=== PATIENT | male | born 1980 | race Caucasian/White ===

== ENCOUNTER 2018-12-21 16:52 | Outpatient (REF) | payer MEDICAID, SELFPAY ==
[2018-12-21 19:20] LABS: HCT 43.8 % (40.0-50.0); Mean Corp. HGB Concentration 34.2 g/dL (32.0-36.0); Mean Corpuscular Hemoglobin 31.4 pg (27.0-33.0); Mean Corpuscular Volume 91.6 fL (80-95); Mean Platelet Volume 11.1 fL (8.0-11.0); Platelet Count 208 x1000/uL (130-400); RBC 4.78 m/cumm (4.50-6.00); RBC Distribution Width 12.9 % (11.8-14.1); White Blood Cell Count 9.18 k/cumm (4.4-10.8)
[2018-12-21 19:42] LABS: ALT 45 U/L (12-78); AST 28 U/L (15-37); Albumin 4.6 g/dL (3.4-5.0); Alkaline Phosphatase 89 U/L (46-116); Anion Gap 9.7 mmol/L (3-11); BUN 9 mg/dL (7-18); Bilirubin, Total 0.6 mg/dL (0.2-1.0); CO2 30.3 mmol/L (21.0-32.0); CREATININE 1.06 mg/dL (0.70-1.30); Calcium 9.3 mg/dL (8.5-10.1); Chloride 99 mmol/L (98-107); Glucose 92 mg/dL (70-100); Sodium 139 mmol/L (136-145); TSH (W/Ref FT4) 1.61 uIU/mL (0.358-3.74)
[2018-12-24 10:08] LABS: PSA, Screening 0.6 ng/ml (0-2.5)
[2018-12-26 04:52] LABS: Testosterone, Total 532 ng/dL (240-950)
== END 2018-12-21 17:12 ==
LOC: NCHCN 16:52
PROVIDERS: PCP Family Medicine; Visit Provider Family Medicine
DX: R25.1 Tremor, unspecified (principal); E23.0 Hypopituitarism
CPT/HCPCS: 80053; 84153; 84403; 85027; 84443

== ENCOUNTER 2019-06-24 12:41 | Outpatient (REF) | payer MEDICAID, SELFPAY ==
[2019-06-24 19:22] LABS: ALT 64 U/L (16-63); AST 33 U/L (15-37); Albumin 4.4 g/dL (3.4-5.0); Alkaline Phosphatase 99 U/L (46-116); Anion Gap 9.1 mmol/L (3-11); BUN 10 mg/dL (7-18); Bilirubin, Total 0.5 mg/dL (0.2-1.0); CO2 30.9 mmol/L (21.0-32.0); CREATININE 1.03 mg/dL (0.70-1.30); Calcium 9.4 mg/dL (8.5-10.1); Chloride 98 mmol/L (98-107); Glucose 87 mg/dL (70-100); Potassium 4.4 mmol/L (3.5-5.1); Sodium 138 mmol/L (136-145)
== END 2019-06-24 13:01 ==
LOC: NCHCN 12:41
PROVIDERS: PCP Family Medicine; Visit Provider Family Medicine
DX: R74.0 Nonspecific elevation of levels of transaminase and lactic acid dehydrogenase [LDH] (principal)
CPT/HCPCS: 80053

== ENCOUNTER 2019-07-29 09:21 | Outpatient (REF) | payer MEDICAID, SELFPAY ==
[2019-07-29 14:25] LABS: ALT 68 U/L (16-63); Ferritin 110 ng/mL (26-388)
[2019-07-30 11:10] LABS: Hepatitis B Surface Ag Negative (Negative)
[2019-07-30 13:26] LABS: HBs Antibody, Quant 182.5 mIU/mL (See Note); Hepatitis B Surface Ab Positive (See Note)
[2019-07-30 15:02] LABS: HCV RNA Detection Quantitative 0 IU/mL (Undetected)
[2019-08-02 12:04] LABS: Ceruloplasmin 25.6 mg/dL
== END 2019-07-29 09:41 ==
LOC: NCHCN 09:21
PROVIDERS: PCP Family Medicine; Visit Provider Family Medicine
DX: R74.0 Nonspecific elevation of levels of transaminase and lactic acid dehydrogenase [LDH] (principal); Z87.19 Personal history of other diseases of the digestive system; R25.1 Tremor, unspecified
CPT/HCPCS: 82390; 86706; 87340; 82728; 84460; 87522

== ENCOUNTER 2019-10-01 09:47 | Outpatient (CLI) | payer MEDICAID, SELFPAY ==
--- NOTE | 2019-10-01 10:10 | DI.RAD_ITS ---
EXAM: XR KNEE RT 3V AP,LAT,JAYASHERE INDICATION: RT KNEE PAIN M25.561, KNEE PAIN AND SWELLING, HEMOPHILIA A. COMPARISON: No exams were available for comparison TECHNIQUE: 2D digital imaging was performed. FINDINGS: The joint spaces are well maintained. No fracture or joint effusion is seen. There is a question of mild anterior soft tissue swelling. No bony lesions are identified. IMPRESSION: Mild anterior soft tissue swelling.
== END 2019-10-01 10:07 ==
PROVIDERS: PCP Family Medicine; Visit Provider Family Medicine
DX: M25.561 Pain in right knee (principal); M79.89 Other specified soft tissue disorders
CPT/HCPCS: 73562

== ENCOUNTER 2022-01-04 16:32 | Outpatient (REF) | payer MEDICAID, SELFPAY ==
[2022-01-04 18:26] LABS: HCT 45.9 % (40.0-50.0); HGB 15.3 g/dL (13.5-17.5); MCH 31.4 pg (27.0-33.0); MCHC 33.3 % (32.0-36.0); MCV 94 fL (80-95); MPV 11.1 fL (8.0-11.0); Platelet Count 271 10^3/uL (130-400); RBC 4.88 10^6/uL (4.36-5.78); RDW 12.7 % (11.8-14.1); RDW-SD 43.9 fL; WBC 11.32 10^3/uL (4.4-10.8)
== END 2022-01-04 16:33 | disposition home or self-care (01) ==
LOC: NCHCN 16:32
PROVIDERS: PCP Family Medicine; Visit Provider Family Medicine
DX: K92.2 Gastrointestinal hemorrhage, unspecified (principal)
CPT/HCPCS: 85027

== ENCOUNTER 2023-02-15 12:40 | Outpatient (REF) | payer MEDICAID, SELFPAY ==
[2023-02-15 18:01] LABS: HCT 42.4 % (40.0-50.0); HGB 14.7 g/dL (13.5-17.5); MCH 32.5 pg (27.0-33.0); MCHC 34.7 % (32.0-36.0); MCV 94 fL (80-95); MPV 12.2 fL (8.0-11.0); Platelet Count 210 10^3/uL (130-400); RBC 4.52 10^6/uL (4.36-5.78); RDW 12.3 % (11.8-14.1); RDW-SD 42.5 fL; WBC 6.94 10^3/uL (4.4-10.8)
[2023-02-15 18:14] LABS: ALT 40 U/L (16-63); AST 20 U/L (15-37); Albumin 4.3 g/dL (3.4-5.0); Alkaline Phosphatase 91 U/L (46-116); Anion Gap 6.3 mmol/L (3-11); BUN 18 mg/dL (7-18); Bilirubin, Total 0.4 mg/dL (0.2-1.0); CO2 30.7 mmol/L (21.0-32.0); CREATININE 0.9 mg/dL (0.70-1.30); Calcium 9.2 mg/dL (8.5-10.1); Calculated LDL 92 mg/dL (<100); Chloride 103 mmol/L (98-107); Cholesterol 168 mg/dL (<200); Estimated GFR 109.36 (mL/min/1.73m2); Glucose 112 mg/dL (74-106); HDL Cholesterol 68 mg/dL (40-60); Potassium 4.8 mmol/L (3.5-5.1); Sodium 140 mmol/L (136-145); Total Protein 7.6 g/dL (6.4-8.2); Triglyceride 40 mg/dL (<150)
[2023-02-17 10:10] LABS: Hepatitis B Surface Ag Negative (Negative)
[2023-02-17 10:58] LABS: HIV-1/2 Ag & Ab Screen Negative (Negative)
[2023-02-17 11:49] LABS: HCV RNA Qualitative Undetected (Undetected)
[2023-02-17 12:09] LABS: Syphilis Serology (RPR) Negative (Negative)
[2023-02-22 16:02] LABS: Testosterone, Free 9.33 ng/dL (4.46-17.1); Testosterone, Total 354 ng/dL (240-950)
== END 2023-02-15 12:41 | disposition home or self-care (01) ==
LOC: NCHCN 12:40
PROVIDERS: PCP Family Medicine; Visit Provider Family Medicine
DX: E23.0 Hypopituitarism; I10 Essential (primary) hypertension
CPT/HCPCS: 80053; 80061; 84402; 84403; 85027; 87340; 87389; 87522; 86592

== ENCOUNTER 2023-02-21 01:50 | Outpatient (CLI) | payer MEDICAID, SELFPAY ==
--- NOTE | 2023-02-21 08:17 | DI.RAD_ITS ---
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 TECHNIQUE: 2D digital imaging was performed of the lumbar spine. Six images were obtained. AP, lat eral, right oblique, left oblique and L5-S1 spot views were obtained. COMPARISON: No exams were available for comparison FINDINGS: BONES: No fracture or destructive lesion. Vertebral bodies are unremarkable. No facet hypertrophy molly ntified. Mild degenerative changes are seen in the lower thoracic spine. DISKS: Intervertebral disc spaces are maintained. ALIGNMENT: Lumbar spinal alignment is within normal limits. No spondylolysis or spondylolisthesis. SOFT TISSUE: Normal. Large amount of stool throughout the colon suggesting constipation. IMPRESSION: 1. Unremarkable radiographs of the lumbar spine. 2. Mild degenerative changes seen in the lower thoracic spine. 3. Findings suggesting constipation. DATA REPOSITORY: RADIATION DOSE DELIVERED:
== END 2023-02-21 02:10 ==
PROVIDERS: PCP Family Medicine; Visit Provider Family Medicine
DX: L92.3 Foreign body granuloma of the skin and subcutaneous tissue (principal); M51.34 Other intervertebral disc degeneration, thoracic region; K59.00 Constipation, unspecified
CPT/HCPCS: 72110

== ENCOUNTER 2023-12-16 00:45 | Emergency (ER) | payer MEDICAID, SELFPAY ==
[2023-12-16 01:01] VITALS: BP 134/94; PULSE 88; RESP 18; TEMP 36.5; O2SAT 98
--- NOTE | 2023-12-16 01:15 | DI.CT_ITS ---
Exam(s) CT HEAD WO EXAM: CT HEAD WO CLINICAL HISTORY: Hemophilia A, psychiatric sympts, r/o bleed. TECHNIQUE: Imaging Protocol: Axial computed tomography images with coronal and sagittal reformatted images were created and reviewed COMPARISON: CR EYE FOREIGN BODY from 05/12/2017 FINDINGS: Ventricles and Extra axial spaces: Normal in size and morphology for the patient's age. Hemorrhage: None. Cerebral parenchyma: No acute territorial infarct. No mass effect is identified. Midline shift: None. Brainstem/Cerebellum: Normal. Calvarium: Normal. Visualized Paranasal sinuses/Mastoids: Clear. Soft Tissues: Unremarkable. IMPRESSION: No acute intracranial process. RADIATION DOSE DELIVERED: Total DLP DATA REPOSITORY: All CT scans at this facility are submitted to the National Radiology Data Registry (NRDR) Dose Index Registry (DIR) with the [employer] (ACR). RADIATION OPTIMIZATION: All CT scans at this facility use at least one of these dose optimization te chniques: automated exposure control; mA and/or kV adjustment per patient size (includes targeted exa ms where dose is matched to clinical indication); or iterative reconstruction.
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
[2023-12-16 01:26] LABS: Abs Immature Grans 0.02 10^3/uL (0.0-0.06); Absolute Basophil Count 0.06 10^3/uL (0.0-0.2); Absolute Eosinophil Count 0.58 10^3/uL (0.0-0.7); Absolute Lymphocyte Count 3.69 10^3/uL (1.2-3.4); Absolute Monocyte Count 0.78 10^3/uL (0.1-0.8); Absolute Neutrophil Count 5.56 10^3/uL (1.2-6.7); Basophils % 0.6; Eosinophils % 5.4; HCT 44.7 % (40.0-50.0); HGB 15.2 g/dL (13.5-17.5); Immature Grans % 0.2; Lymphocytes % 34.5; MCH 31.3 pg (27.0-33.0); MCV 92 fL (80-95); Monocytes % 7.3; Platelet Count 244 10^3/uL (130-400); RBC 4.85 10^6/uL (4.36-5.78); RDW 11.9 % (11.8-14.1); RDW-SD 40.9 fL; WBC 10.69 10^3/uL (4.4-10.8)
[2023-12-16 01:43] LABS: Salicylate < 2.8 mg/dL (<2.8)
[2023-12-16 01:44] LABS: Acetaminophen < 2 ug/mL (10-30)
[2023-12-16 01:53] LABS: ALT 27 U/L (16-63); AST 18 U/L (15-37); Albumin 4.4 g/dL (3.4-5.0); Alkaline Phosphatase 90 U/L (46-116); Anion Gap 5.3 mmol/L (3-11); BUN 18 mg/dL (7-18); Bilirubin, Total 0.3 mg/dL (0.2-1.0); CO2 32.7 mmol/L (21.0-32.0); CREATININE 0.9 mg/dL (0.70-1.30); Calcium 9.4 mg/dL (8.5-10.1); Chloride 103 mmol/L (98-107); Estimated GFR 108.68 (mL/min/1.73m2); Glucose 70 mg/dL (74-106); Potassium 4.1 mmol/L (3.5-5.1); Sodium 141 mmol/L (136-145); TSH (W/Ref FT4) 1.38 uIU/mL (0.36-3.74); Total Protein 8.2 g/dL (6.4-8.2)
[2023-12-16] MEDS: Nicotine 21 MG/24 HR PATCH TD (02:03)
[2023-12-16 02:06] LABS: ETHANOL BLOOD < 3.0 mg/dL (<10)
--- NOTE | 2023-12-16 02:07 | DI.VRAD_ITS ---
PROCEDURE INFORMATION: Exam: CT Head Without Contrast Exam date and time: 12/16/2023 1:31 AM Age: 43 years old Clinical indication: Altered mental status/memory loss and other: Hemophilia a, psychiatric sympts, R/O bleed; Patient HX: Hearing voices TECHNIQUE: Imaging protocol: Computed tomography of the head without contrast. COMPARISON: CR EYE FOREIGN BODY 05/12/2017 10:33 AM FINDINGS: Brain: Normal. No hemorrhage. Unremarkable white matter. No mass effect. Cerebral ventricles: No ventriculomegaly. Paranasal sinuses: Visualized sinuses are unremarkable. No fluid levels. Mastoid air cells: Visualized mastoid air cells are well aerated. Bones/joints: Unremarkable. No acute fracture. Soft tissues: Unremarkable. IMPRESSION: No acute intracranial abnormality. Dictated and Authenticated by: Christopher Maier MD. Ordering:MATHEW Perkins MD
[2023-12-16 02:26] LABS: *AMPHETAMINES SCREEN URINE Negative (Negative); *BARBITURATES SCREEN URINE Negative (Negative); *BENZODIAZEPINES SCREEN URINE Negative (Negative); Cannabinoids THC Negative (Negative); Cocaine Screen,Urine Positive (Negative); METHADONE URINE SCREEN Positive (Negative); OPIATES URINE SCREEN Negative (Negative)
[2023-12-16 02:36] LABS: Tricyclic Antidepressants Negative (Negative)
[2023-12-16] MEDS: LORazepam 1 MG TAB 2 MG PO (02:36)
[2023-12-16] MEDS: OLANZapine 10 MG TAB 20 MG PO (02:36)
[2023-12-16] MEDS: Methadone Liquid 10 MG/ML 120 MG PO ×2 (06:32→07:31)
--- NOTE | 2023-12-16 08:07 | W.EDPROG ---
Date of service: 12/16/23 Time of Service: 08:08 Medical Decision Making Care assumed from provider (Laurent Daily DO) Please see their initial HPI, PE, and documentation. Discussed patient details and case and pending workup and disposition. Patient is hemodynamically stable, and alert and oriented. At the time of signout awaiting mental health eval around 830. 1010: Huddle performed with BREANA Mohamud and RN, and digital experience manager, and electrician supervisor substation, will fill out EE paperwork, at this time, patient is too sleepy to complete adequate MH assessment by Oneida with BREANA. Patient sleeping, breathing eupneic, per RN report patient awoke and was asking when he could leave. 1227: Patient more alert now and Oneida TOUSSAINT paged. 1425: Oneida TOUSSAINT at for re-eval. Care is to be handed off to oncoming provider CESILIA Akins pending second certification. Discussed patient case in detail she is verbalized understanding. Medical Records Medical records reviewed: Yes I reviewed the patient's medical records. Lab Data Lab results reviewed: Yes I reviewed the patient's lab results. Labs: Laboratory Tests Range/Units 12/16/23 12/16/23 01:20 02:06 WBC (4.4-10.8) 10^3/uL 10.69 RBC (4.36-5.78) 10^6/uL 4.85 Hgb (13.5-17.5) g/dL 15.2 Hct (40.0-50.0) % 44.7 MCV (80-95) fL 92 MCH (27.0-33.0) pg 31.3 MCHC (32.0-36.0) % 34.0 RDW (11.8-14.1) % 11.9 Plt Count (130-400) 10^3/uL 244 MPV (8.0-11.0) fL 10.0 Immature Gran % 0.2 Neutrophils % 52.0 Lymphocytes % 34.5 Monocytes % 7.3 Eosinophils % 5.4 Basophils % 0.6 Nucleated RBC % (0.0-0.3) % 0.0 Absolute Neutrophils (1.2-6.7) 10^3/uL 5.56 Absolute Lymphocytes (1.2-3.4) 10^3/uL 3.69 H Absolute Monocytes (0.1-0.8) 10^3/uL 0.78 Absolute Eosinophils (0.0-0.7) 10^3/uL 0.58 Absolute Basophils (0.0-0.2) 10^3/uL 0.06 Sodium (136-145) mmol/L 141 Potassium (3.5-5.1) mmol/L 4.1 Chloride (98-107) mmol/L 103 Carbon Dioxide (21.0-32.0) mmol/L 32.7 H Anion Gap (3-11) mmol/L 5.3 BUN (7-18) mg/dL 18 Creatinine (0.70-1.30) mg/dL 0.9 Est GFR (CKD-EPI 2020) (mL/min/1.73m2) 108.68 Glucose (74-106) mg/dL 70 L Calcium (8.5-10.1) mg/dL 9.4 Total Bilirubin (0.2-1.0) mg/dL 0.3 AST (15-37) U/L 18 ALT (16-63) U/L 27 Alkaline Phosphatase (46-116) U/L 90 Total Protein (6.4-8.2) g/dL 8.2 Albumin (3.4-5.0) g/dL 4.4 TSH (0.36-3.74) uIU/mL 1.38 Salicylates (<2.8) mg/dL < 2.8 Urine Opiates Screen (Negative) Negative Urine Methadone Screen (Negative) Positive A Acetaminophen (10-30) ug/mL < 2 Ur Barbiturates Screen (Negative) Negative Ur Tricyclics Screen (Negative) Negative Ur Amphetamines Screen (Negative) Negative U Benzodiazepines Scrn (Negative) Negative Urine Cocaine Screen (Negative) Positive A Ur THC Screen (Negative) Negative Ethyl Alcohol (<10) mg/dL < 3.0 Quality:SDOH Health Related Social Needs: No Data to Display Sign Out Sign Out Data: Sign Out Comment: Requested by mental health to have a psychiatric evaluation. Patient calm and cooperative at this time. He denies any complaints of homicidal or suicidal ideations currently however he is also not very communicative. Pending mental health assessment this morning. Medically cleared at this time. Last updated by Gregorio Daily DO at 12/16/23 07:34 Sign Out Comment: Requested by mental health to have a psychiatric evaluation. Patient calm and cooperative at this time. He denies any complaints of homicidal or suicidal ideations currently however he is also not very communicative. Pending mental health assessment this morning. Medically cleared at this time. Last updated by Samuel Boogie MD at 12/16/23 07:59 Sign Out Comment: Patient is EE'd, awaiting second certification in am. Has remained calm and cooperative throughout the day. Has normal medications ordered by previous provider. Last updated by Trista Orourke, GOKUL at 12/16/23 15:40 Discharge Plan Discharge Details Chief Complaint: PsychEval Clinical Impression: Encounter for medical assessment Primary Care Provider: Prosper Quiñonez ED Provider: Trista Orourke Home Meds and New Rx's Prescriptions: No Action gabapentin 600 mg tablet 600 mg PO TID Patient Comments: Take 1 tablet by mouth three times a day. lisinopril 20 mg tablet 20 mg PO DAILY Patient Comments: TAKE ONE TABLET BY MOUTH ONCE DAILY omeprazole 20 mg capsule,delayed release(DR/EC) 20 mg PO DAILY Patient Comments: TAKE ONE CAPSULE BY MOUTH ONCE DAILY methadone 5 mg/5 mL solution 120 mg PO DAILY methadone 10 mg/mL concentrate 60 mg PO DAILY Rx Instructions: take at 1400 testosterone 1 % (50 mg/5 gram) gel in packet 1 packet topical DAILY Patient Comments: Apply 1 packet every day by transdermal route.
[2023-12-16 09:36] VITALS: BP 130/90; PULSE 70; RESP 16; TEMP 36.2; O2SAT 98
[2023-12-16] MEDS: Gabapentin 600 MG TAB PO ×3 (09:36→21:30)
[2023-12-16] MEDS: Omeprazole 20 MG CAPCR PO (09:36)
[2023-12-16] MEDS: Lisinopril 20 MG TAB PO (09:36)
[2023-12-16] MEDS: Methadone Liquid 10 MG/ML 40 MG PO (14:35)
--- NOTE | 2023-12-16 19:28 | CMSP_ITS ---
Date of service: 12/16/23 Time of Service: 19:28 Care Management Safety Plan Status Status: Involuntary Reason for Wait Reason for Wait: Inpatient Admission Safety Plan Safety Plan: INVOLUNTARY FOR INPATIENT PSYCHIATRIC STABILIZATION.? Patient is appropriate in all interactions since arriving at [facility]; Pt has demonstrated appropriate coping and communication skills, has articulated his or her needs and concerns and is fully engaged during staff interactions. Safety plan has been established with patient, and care team, to adhere to patient goals, identify restrictions based on behavioral status, address nutrition, and determine allowed personal belongings, tools for hygiene and personal care. Determine level of activity including ambulation, level of supervision, visitors, and determine privileges based on behaviors and level of engagement by pt. SAFETY PLAN: 1. Will remain on suicide precautions, in paper clothes 2. Will remain in Zone B under direct supervision of one-on-one staff at all times provided by [employer]; SEUN, QUALITY IMPROVEMENT MANAGER renovation plant supervisor. 3. May have paper cups, plates, finger foods as well as a cardboard spoon with which to eat meals. 4. Follow [facility] Management of the Admitted Behavioral Health Patient policy. 5. Shower available in Zone B without restriction. 6. Personal belongings-soft items permitted at RN discretion. 7. Visitors-none at this time. 8. Activities: soft cart items approved per RN discretion. 9.? Bathroom available in Zone B without restriction. 10. Phone: limited to [facility] cordless phone at RN discretion. Due to INVOLUNTARY status, patient is being held at [facility] by the Department of Mental Health ([facility]) until 2nd certification by [facility] Psychiatrist can be performed (within 24 hours). Staff will provide de-escalation support (CPI) as needed. If patient wishes to leave [facility], staff will contact [facility] Crisis Screener ([phone]) and Respiratory Therapy Director ([phone]) as soon as possible. In the event of elopement, notify [place] [employer] Police ([phone]). Patient is currently involuntarily at [facility]. [facility] Frontline Roofer Gypsum will continue seeking placement. Please contact the Respiratory Therapy Director for any needed changes to Safety Plan. Safety plan has been provided to interdepartmental care team. Patient will be transported by [facility] at time of discharge.
--- NOTE | 2023-12-16 19:29 | CMPROGNOTE_ITS ---
Date of service: 12/16/23 Time of Service: 10:30 Care Management Progress Note Progress Note Text Progress Note Text: CM huddled with staff in the ED including BETY Mohamud, Christopher, RN, Markell, RN gate supervisor, and Trista, ED provider. Per Oneida, Derrek was not able to engage with her during the assessment due to him being too tired to stay awake. Per RN, he did not sleep well overnight, but has been resting this morning. RN stated that when Derrek was awake earlier he was asking about when he could leave; RN expressed some concern about Derrek attempting to elope. Oneida clarified that he is involuntary, awaiting completion of ED provider notes and second certification, and that if he elopes, he will be brought back to [facility] via police/EMS. Later, Derrek was reportedly becoming more anxious and wanting to leave. BETY Mohamud was called in to complete her assessment. Second certification was completed and upheld. Referrals are pending at inpatient psychiatric facilities, sent by BETY.
--- NOTE | 2023-12-17 06:39 | W.EDPROG ---
Date of service: 12/17/23 Time of Service: 06:40 Medical Decision Making Patient stable throughout the night. No interventions needed. Methadone dose timing was readjusted for this morning. Quality:[facility] Health Related Social Needs: No Data to Display Sign Out Sign Out Data: Sign Out Comment: Requested by [facility] to have a psychiatric evaluation. Patient calm and cooperative at this time. He denies any complaints of homicidal or suicidal ideations currently however he is also not very communicative. Pending mental health assessment this morning. Medically cleared at this time. Last updated by Gregorio Daily DO at 12/16/23 07:34 Sign Out Comment: Requested by [facility] to have a psychiatric evaluation. Patient calm and cooperative at this time. He denies any complaints of homicidal or suicidal ideations currently however he is also not very communicative. Pending mental health assessment this morning. Medically cleared at this time. Last updated by Samuel Boogie MD at 12/16/23 07:59 Sign Out Comment: Patient is EE'd, awaiting second certification in am. Has remained calm and cooperative throughout the day. Has normal medications ordered by previous provider. Last updated by Trista Orourke NP at 12/16/23 15:40 Sign Out Comment: Pt is under involuntary status pending placement for homicidal ideation Last updated by Gina Rolle PA at 12/16/23 23:07 Discharge Plan Discharge Details Chief Complaint: PsychEval Clinical Impression: Encounter for medical assessment Primary Care Provider: Prosper Quiñonez ED Provider: Gregorio Daily Home Meds and New Rx's Prescriptions: No Action gabapentin 600 mg tablet 600 mg PO TID Patient Comments: Take 1 tablet by mouth three times a day. lisinopril 20 mg tablet 20 mg PO DAILY Patient Comments: TAKE ONE TABLET BY MOUTH ONCE DAILY omeprazole 20 mg capsule,delayed release(DR/EC) 20 mg PO DAILY Patient Comments: TAKE ONE CAPSULE BY MOUTH ONCE DAILY methadone 5 mg/5 mL solution 120 mg PO DAILY methadone 10 mg/mL concentrate 60 mg PO DAILY Rx Instructions: take at 1400 testosterone 1 % (50 mg/5 gram) gel in packet 1 packet topical DAILY Patient Comments: Apply 1 packet every day by transdermal route.
--- NOTE | 2023-12-17 07:11 | W.EDPROG ---
Date of service: 12/17/23 Time of Service: 07:11 Medical Decision Making Patient on EE status pending placement, no reported issues during prior shift and currently calm and cooperative without acute complaints, will continue to monitor until safe disposition found. Quality:[facility] Health Related Social Needs: No Data to Display Sign Out Sign Out Data: Sign Out Comment: Requested by mental health to have a psychiatric evaluation. Patient calm and cooperative at this time. He denies any complaints of homicidal or suicidal ideations currently however he is also not very communicative. Pending mental health assessment this morning. Medically cleared at this time. Last updated by Gregorio Daily DO at 12/16/23 07:34 Sign Out Comment: Requested by mental health to have a psychiatric evaluation. Patient calm and cooperative at this time. He denies any complaints of homicidal or suicidal ideations currently however he is also not very communicative. Pending mental health assessment this morning. Medically cleared at this time. Last updated by Samuel Boogie MD at 12/16/23 07:59 Sign Out Comment: Patient is EE'd, awaiting second certification in am. Has remained calm and cooperative throughout the day. Has normal medications ordered by previous provider. Last updated by Trista Orourke NP at 12/16/23 15:40 Sign Out Comment: Pt is under involuntary status pending placement for homicidal ideation Last updated by Gina Rolle PA at 12/16/23 23:07 Sign Out Comment: Patient here involuntarily. Questionable homicidal ideation. Pending placement Last updated by Gregorio Daily DO at 12/17/23 06:57 Discharge Plan Discharge Details Chief Complaint: PsychEval Clinical Impression: Encounter for medical assessment Primary Care Provider: Prosper Quiñonez ED Provider: Christopher Finn Jackson Meds and New Rx's Prescriptions: No Action gabapentin 600 mg tablet 600 mg PO TID Patient Comments: Take 1 tablet by mouth three times a day. lisinopril 20 mg tablet 20 mg PO DAILY Patient Comments: TAKE ONE TABLET BY MOUTH ONCE DAILY omeprazole 20 mg capsule,delayed release(DR/EC) 20 mg PO DAILY Patient Comments: TAKE ONE CAPSULE BY MOUTH ONCE DAILY methadone 5 mg/5 mL solution 120 mg PO DAILY methadone 10 mg/mL concentrate 60 mg PO DAILY Rx Instructions: take at 1400 testosterone 1 % (50 mg/5 gram) gel in packet 1 packet topical DAILY Patient Comments: Apply 1 packet every day by transdermal route.
[2023-12-17 07:19] VITALS: BP 116/78; PULSE 80; RESP 16; TEMP 36.6; O2SAT 98
[2023-12-17] MEDS: Gabapentin 600 MG TAB PO ×3 (07:58→20:17)
[2023-12-17] MEDS: Omeprazole 20 MG CAPCR PO (07:58)
[2023-12-17] MEDS: Lisinopril 20 MG TAB PO (07:59)
[2023-12-17] MEDS: Methadone Liquid 10 MG/ML 120 MG PO (08:00)
[2023-12-17] MEDS: Nicotine 4 MG LOZG SUC ×3 (10:54→18:08)
[2023-12-17] MEDS: Methadone Liquid 10 MG/ML 40 MG PO (13:58)
--- NOTE | 2023-12-17 15:47 | W.EDPROG ---
Date of service: 12/17/23 Time of Service: 15:47 Medical Decision Making I received signout on this 43-year-old patient in the emergency department currently on an EE having had the second certification upheld. No active behavioral issues last shift. Will update documentation as clinically warranted and sign patient out to the oncoming overnight provider. 10:25 PM No active behavioral issues/shift. Will sign patient out to oncoming evening provider. Quality:[facility] Health Related Social Needs: No Data to Display Sign Out Sign Out Data: Sign Out Comment: Requested by mental health to have a psychiatric evaluation. Patient calm and cooperative at this time. He denies any complaints of homicidal or suicidal ideations currently however he is also not very communicative. Pending mental health assessment this morning. Medically cleared at this time. Last updated by Gregorio Daily DO at 12/16/23 07:34 Sign Out Comment: Requested by mental health to have a psychiatric evaluation. Patient calm and cooperative at this time. He denies any complaints of homicidal or suicidal ideations currently however he is also not very communicative. Pending mental health assessment this morning. Medically cleared at this time. Last updated by Samuel Boogie MD at 12/16/23 07:59 Sign Out Comment: Patient is EE'd, awaiting second certification in am. Has remained calm and cooperative throughout the day. Has normal medications ordered by previous provider. Last updated by Trista Orourke NP at 12/16/23 15:40 Sign Out Comment: Pt is under involuntary status pending placement for homicidal ideation Last updated by Gina Rolle PA at 12/16/23 23:07 Sign Out Comment: Patient here involuntarily. Questionable homicidal ideation. Pending placement Last updated by Gregorio Daily DO at 12/17/23 06:57 Sign Out Comment: patient here involuntary for homicidal ideation, no issues during shift Last updated by Christopher Finn MD at 12/17/23 14:44 Discharge Plan Discharge Details Chief Complaint: PsychEval Clinical Impression: Encounter for medical assessment Primary Care Provider: Prosper Quiñonez ED Provider: Prosper Aguero Home Meds and New Rx's Prescriptions: No Action gabapentin 600 mg tablet 600 mg PO TID Patient Comments: Take 1 tablet by mouth three times a day. lisinopril 20 mg tablet 20 mg PO DAILY Patient Comments: TAKE ONE TABLET BY MOUTH ONCE DAILY omeprazole 20 mg capsule,delayed release(DR/EC) 20 mg PO DAILY Patient Comments: TAKE ONE CAPSULE BY MOUTH ONCE DAILY methadone 5 mg/5 mL solution 120 mg PO DAILY methadone 10 mg/mL concentrate 60 mg PO DAILY Rx Instructions: take at 1400 testosterone 1 % (50 mg/5 gram) gel in packet 1 packet topical DAILY Patient Comments: Apply 1 packet every day by transdermal route.
--- NOTE | 2023-12-17 17:50 | CMSP_ITS ---
Date of service: 12/17/23 Time of Service: 17:50 Care Management Safety Plan Status Status: Involuntary Reason for Wait Reason for Wait: Inpatient Admission Safety Plan Safety Plan: INVOLUNTARY FOR INPATIENT PSYCHIATRIC STABILIZATION.? Patient is appropriate in all interactions since arriving at [facility]; Pt has demonstrated appropriate coping and communication skills, has articulated his or her needs and concerns and is fully engaged during staff interactions. Safety plan has been established with patient, and care team, to adhere to patient goals, identify restrictions based on behavioral status, address nutrition, and determine allowed personal belongings, tools for hygiene and personal care. Determine level of activity including ambulation, level of supervision, visitors, and determine privileges based on behaviors and level of engagement by pt. SAFETY PLAN: 1. Will remain on suicide precautions, in paper clothes 2. Will remain in Zone B under direct supervision of one-on-one staff at all times provided by [employer]; SEUN, CUSTOMER SERVICE AGENT bull gang worker. 3. May have paper cups, plates, finger foods as well as a cardboard spoon with which to eat meals. 4. Follow [facility] Management of the Admitted Behavioral Health Patient policy. 5. Shower available in Zone B without restriction. 6. Personal belongings-soft items permitted at RN discretion. 7. Visitors-none at this time. 8. Activities: soft cart items approved per RN discretion. 9.? Bathroom available in Zone B without restriction. 10. Phone: limited to [facility] cordless phone at RN discretion. Due to INVOLUNTARY status, patient is being held at [facility] by the Department of Mental Health ([facility]) until 2nd certification by [facility] Psychiatrist can be performed (within 24 hours). Staff will provide de-escalation support (CPI) as needed. If patient wishes to leave [facility], staff will contact [facility] Crisis Screener ([phone]) and Sewing Machines Salesperson ([phone]) as soon as possible. In the event of elopement, notify [place] [employer] Police ([phone]). Patient is currently involuntarily at [facility]. [facility] Frontline Grain Cleaner will continue seeking placement. Please contact the Sewing Machines Salesperson for any needed changes to Safety Plan. Safety plan has been provided to interdepartmental care team. Patient will be transported by [employer] at time of discharge.
--- NOTE | 2023-12-17 17:50 | PDOC.CMSAFE ---
Date of service: 12/17/23 Time of Service: 17:50 Care Management Safety Plan Status Status: Involuntary Reason for Wait Reason for Wait: Inpatient Admission Safety Plan Safety Plan: INVOLUNTARY FOR INPATIENT PSYCHIATRIC STABILIZATION.? Patient is appropriate in all interactions since arriving at [facility]; Pt has demonstrated appropriate coping and communication skills, has articulated his or her needs and concerns and is fully engaged during staff interactions. Safety plan has been established with patient, and care team, to adhere to patient goals, identify restrictions based on behavioral status, address nutrition, and determine allowed personal belongings, tools for hygiene and personal care. Determine level of activity including ambulation, level of supervision, visitors, and determine privileges based on behaviors and level of engagement by pt. SAFETY PLAN: 1. Will remain on suicide precautions, in paper clothes 2. Will remain in Zone B under direct supervision of one-on-one staff at all times provided by [employer]; SEUN, CLEARANCE DIVER animal doctor. 3. May have paper cups, plates, finger foods as well as a cardboard spoon with which to eat meals. 4. Follow [facility] Management of the Admitted Behavioral Health Patient policy. 5. Shower available in Zone B without restriction. 6. Personal belongings-soft items permitted at RN discretion. 7. Visitors-none at this time. 8. Activities: soft cart items approved per RN discretion. 9.? Bathroom available in Zone B without restriction. 10. Phone: limited to [facility] cordless phone at RN discretion. Due to INVOLUNTARY status, patient is being held at [facility] by the Department of Mental Health ([facility]) until 2nd certification by [facility] Psychiatrist can be performed (within 24 hours). Staff will provide de-escalation support (CPI) as needed. If patient wishes to leave [facility], staff will contact [facility] Crisis Screener ([phone]) and Steam Oven Operator ([phone]) as soon as possible. In the event of elopement, notify [place] [employer] Police ([phone]). Patient is currently involuntarily at [facility]. [facility] Frontline Department Store Manager will continue seeking placement. Please contact the Steam Oven Operator for any needed changes to Safety Plan. Safety plan has been provided to interdepartmental care team. Patient will be transported by [employer] at time of discharge.
--- NOTE | 2023-12-17 17:51 | CMPROGNOTE_ITS ---
Date of service: 12/17/23 Time of Service: 17:51 Care Management Progress Note Progress Note Text Progress Note Text: CM huddled with staff regarding Derrek's plan of care. Derrek is more interactive today, and has been pacing through zone B. His RN stated that he was playing cards with the [employer] earlier, and appeared to be interacting with someone who was not there. He met with BETY Mohamud, who completed his assessment, and he reported that he does not want anyone to contact his parents at this time. He has been declined by [facility]. No other facilities have beds available at this time. No changes to his safety plan today.
--- NOTE | 2023-12-17 23:30 | W.EDPROG ---
Date of service: 12/17/23 Time of Service: 23:30 Medical Decision Making This patient was signed out to me. Please see previous notes for H&P and initial eval. In brief, 43yo M presenting with auditory hallucinations and HI. Medically cleared, EEd, 2nd cert upheld. Medically cleared, home meds ordered. Pending placement. Overnight appeared to be sleeping comfortably. No behavioral events. Did not wake for assessment. Signed out to oncoming physician, plan remains as above. Quality:[facility] Health Related Social Needs: No Data to Display Sign Out Sign Out Data: Sign Out Comment: Requested by mental health to have a psychiatric evaluation. Patient calm and cooperative at this time. He denies any complaints of homicidal or suicidal ideations currently however he is also not very communicative. Pending mental health assessment this morning. Medically cleared at this time. Last updated by Gregorio Daily DO at 12/16/23 07:34 Sign Out Comment: Requested by mental health to have a psychiatric evaluation. Patient calm and cooperative at this time. He denies any complaints of homicidal or suicidal ideations currently however he is also not very communicative. Pending mental health assessment this morning. Medically cleared at this time. Last updated by Samuel Boogie MD at 12/16/23 07:59 Sign Out Comment: Patient is EE'd, awaiting second certification in am. Has remained calm and cooperative throughout the day. Has normal medications ordered by previous provider. Last updated by Trista Orourke NP at 12/16/23 15:40 Sign Out Comment: Pt is under involuntary status pending placement for homicidal ideation Last updated by Gina Rolle PA at 12/16/23 23:07 Sign Out Comment: Patient here involuntarily. Questionable homicidal ideation. Pending placement Last updated by Gregorio Daily DO at 12/17/23 06:57 Sign Out Comment: patient here involuntary for homicidal ideation, no issues during shift Last updated by Christopher Finn MD at 12/17/23 14:44 Sign Out Comment: EE with second certification upheld. No active behavioral issues last shift. Medically cleared. Home meds ordered. Last updated by Prosper Aguero MD at 12/17/23 22:26 Discharge Plan Discharge Details Chief Complaint: PsychEval Clinical Impression: Encounter for medical assessment Primary Care Provider: Prosper Quiñonez ED Provider: Aurora Ragland Home Meds and New Rx's Prescriptions: No Action gabapentin 600 mg tablet 600 mg PO TID Patient Comments: Take 1 tablet by mouth three times a day. lisinopril 20 mg tablet 20 mg PO DAILY Patient Comments: TAKE ONE TABLET BY MOUTH ONCE DAILY omeprazole 20 mg capsule,delayed release(DR/EC) 20 mg PO DAILY Patient Comments: TAKE ONE CAPSULE BY MOUTH ONCE DAILY methadone 5 mg/5 mL solution 120 mg PO DAILY methadone 10 mg/mL concentrate 60 mg PO DAILY Rx Instructions: take at 1400 testosterone 1 % (50 mg/5 gram) gel in packet 1 packet topical DAILY Patient Comments: Apply 1 packet every day by transdermal route.
[2023-12-18] MEDS: Nicotine 4 MG LOZG SUC ×6 (03:02→22:38)
[2023-12-18] MEDS: Methadone Liquid 10 MG/ML 120 MG PO (08:10)
[2023-12-18] MEDS: Gabapentin 600 MG TAB PO ×3 (08:45→20:44)
[2023-12-18] MEDS: Lisinopril 20 MG TAB PO (08:45)
[2023-12-18] MEDS: Omeprazole 20 MG CAPCR PO (08:46)
[2023-12-18 09:15] VITALS: BP 126/79; PULSE 80; RESP 16; TEMP 36.4; O2SAT 99
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
--- NOTE | 2023-12-18 13:04 | CMPROGNOTE_ITS ---
Date of service: 12/18/23 Time of Service: 13:04 Care Management Progress Note Progress Note Text Progress Note Text: NAYELI huddled with staff regarding Derrek's plan of care. Per RN, he has been accepted at [facility], and the nurse to nurse report has been completed. He is aware of the acceptance, and is looking forward to transferring. CM contacted [facility], who was informed of this bed offer. [facility] is coordinating transport. CM will continue to follow.
--- NOTE | 2023-12-18 13:04 | PDOC.CMPRO ---
Date of service: 12/18/23 Time of Service: 13:04 Care Management Progress Note Progress Note Text Progress Note Text: NAYELI huddled with staff regarding Derrek's plan of care. Per RN, he has been accepted at [facility], and the nurse to nurse report has been completed. He is aware of the acceptance, and is looking forward to transferring. CM contacted [facility], who was informed of this bed offer. [facility] is coordinating transport. CM will continue to follow.
[2023-12-18] MEDS: Methadone Liquid 10 MG/ML 40 MG PO (13:51)
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
--- NOTE | 2023-12-18 16:02 | W.EDPROG ---
Date of service: 12/18/23 Time of Service: 16:03 Medical Decision Making Patient stable throughout the shift. No interventions needed. Patient still here involuntarily. Pending placement Quality:SDOH Health Related Social Needs: No Data to Display Sign Out Sign Out Data: Sign Out Comment: Requested by mental [facility] to have a psychiatric evaluation. Patient calm and cooperative at this time. He denies any complaints of homicidal or suicidal ideations currently however he is also not very communicative. Pending mental health assessment this morning. Medically cleared at this time. Last updated by Gregorio Daily DO at 12/16/23 07:34 Sign Out Comment: Requested by [facility] to have a psychiatric evaluation. Patient calm and cooperative at this time. He denies any complaints of homicidal or suicidal ideations currently however he is also not very communicative. Pending mental health assessment this morning. Medically cleared at this time. Last updated by Samuel Boogie MD at 12/16/23 07:59 Sign Out Comment: Patient is EE'd, awaiting second certification in am. Has remained calm and cooperative throughout the day. Has normal medications ordered by previous provider. Last updated by Trista Orourke NP at 12/16/23 15:40 Sign Out Comment: Pt is under involuntary status pending placement for homicidal ideation Last updated by Gina Rolle PA at 12/16/23 23:07 Sign Out Comment: Patient here involuntarily. Questionable homicidal ideation. Pending placement Last updated by Gergorio Daily DO at 12/17/23 06:57 Sign Out Comment: patient here involuntary for homicidal ideation, no issues during shift Last updated by Christopher Finn MD at 12/17/23 14:44 Sign Out Comment: EE with second certification upheld. No active behavioral issues last shift. Medically cleared. Home meds ordered. Last updated by Prosper Aguero MD at 12/17/23 22:26 Sign Out Comment: 43yo M presenting with auditory hallucinations and HI. Medically cleared, EEd, 2nd cert upheld. Home meds in. No behavioral events overnight. Last updated by Aurora Ragland MD at 12/18/23 06:28 Discharge Plan Discharge Details Chief Complaint: PsychEval Clinical Impression: Encounter for medical assessment Primary Care Provider: Prosper Quiñonez ED Provider: Gregorio Daily Home Meds and New Rx's Prescriptions: No Action gabapentin 600 mg tablet 600 mg PO TID Patient Comments: Take 1 tablet by mouth three times a day. lisinopril 20 mg tablet 20 mg PO DAILY Patient Comments: TAKE ONE TABLET BY MOUTH ONCE DAILY omeprazole 20 mg capsule,delayed release(DR/EC) 20 mg PO DAILY Patient Comments: TAKE ONE CAPSULE BY MOUTH ONCE DAILY methadone 5 mg/5 mL solution 120 mg PO DAILY methadone 10 mg/mL concentrate 60 mg PO DAILY Rx Instructions: take at 1400 testosterone 1 % (50 mg/5 gram) gel in packet 1 packet topical DAILY Patient Comments: Apply 1 packet every day by transdermal route.
--- NOTE | 2023-12-18 19:07 | ED.PROG_ITS ---
Date of service: 12/18/23 Time of Service: 19:07 Medical Decision Making Patient was prescribed albuterol but apparently they cannot take him until at the earliest tomorrow. Patient stable with no acute complaints currently, will continue to monitor until safe disposition found Quality:SDWA Health Related Social Needs: No Data to Display Sign Out Sign Out Data: Sign Out Comment: Requested by mental health to have a psychiatric evaluation. Patient calm and cooperative at this time. He denies any complaints of homicidal or suicidal ideations currently however he is also not very communicative. Pending mental health assessment this morning. Medically cleared at this time. Last updated by Gregorio Daily DO at 12/16/23 07:34 Sign Out Comment: Requested by mental [facility] to have a psychiatric evaluation. Patient calm and cooperative at this time. He denies any complaints of homicidal or suicidal ideations currently however he is also not very communicative. Pending mental health assessment this morning. Medically cleared at this time. Last updated by Samuel Boogie MD at 12/16/23 07:59 Sign Out Comment: Patient is EE'd, awaiting second certification in am. Has remained calm and cooperative throughout the day. Has normal medications ordered by previous provider. Last updated by Trista Orourke NP at 12/16/23 15:40 Sign Out Comment: Pt is under involuntary status pending placement for homicidal ideation Last updated by Gina Rolle PA at 12/16/23 23:07 Sign Out Comment: Patient here involuntarily. Questionable homicidal ideation. Pending placement Last updated by Gregorio Daily DO at 12/17/23 06:57 Sign Out Comment: patient here involuntary for homicidal ideation, no issues during shift Last updated by Christopher Finn MD at 12/17/23 14:44 Sign Out Comment: EE with second certification upheld. No active behavioral issues last shift. Medically cleared. Home meds ordered. Last updated by Prosper Aguero MD at 12/17/23 22:26 Sign Out Comment: 43yo M presenting with auditory hallucinations and HI. Medically cleared, EEd, 2nd cert upheld. Home meds in. No behavioral events overnight. Last updated by Aurora Ragland MD at 12/18/23 06:28 Discharge Plan Disposition Patient Disposition: Psychiatric Hospital/Unit Specific Psychiatric Facility: [facility] Discharge Details Clinical Impression: Encounter for medical assessment Primary Care Provider: Prosper Quiñonez ED Provider: Christopher Finn [place] Meds and New Rx's Prescriptions: No Action gabapentin 600 mg tablet 600 mg PO TID Patient Comments: Take 1 tablet by mouth three times a day. lisinopril 20 mg tablet 20 mg PO DAILY Patient Comments: TAKE ONE TABLET BY MOUTH ONCE DAILY omeprazole 20 mg capsule,delayed release(DR/EC) 20 mg PO DAILY Patient Comments: TAKE ONE CAPSULE BY MOUTH ONCE DAILY methadone 5 mg/5 mL solution 120 mg PO DAILY methadone 10 mg/mL concentrate 60 mg PO DAILY Rx Instructions: take at 1400 testosterone 1 % (50 mg/5 gram) gel in packet 1 packet topical DAILY Patient Comments: Apply 1 packet every day by transdermal route.
--- NOTE | 2023-12-18 22:04 | W.EDPROG ---
Date of service: 12/18/23 Time of Service: 22:05 Medical Decision Making This patient was signed out to me. Please see previous notes from H&P and initial eval. In brief, 43yo M, hallucinations & HI, ee'd and 2nd cert upheld, awaiting placement. Medically cleared and home meds ordered. [facility] Overnight appeared to be sleeping. Did not wake for assessment. No acute behavioral events. Signed out to oncoming physician, plan remains as above. Quality:[facility] Health Related Social Needs: No Data to Display Sign Out Sign Out Data: Sign Out Comment: Requested by mental health to have a psychiatric evaluation. Patient calm and cooperative at this time. He denies any complaints of homicidal or suicidal ideations currently however he is also not very communicative. Pending mental health assessment this morning. Medically cleared at this time. Last updated by Gregorio Daily DO at 12/16/23 07:34 Sign Out Comment: Requested by mental health to have a psychiatric evaluation. Patient calm and cooperative at this time. He denies any complaints of homicidal or suicidal ideations currently however he is also not very communicative. Pending mental health assessment this morning. Medically cleared at this time. Last updated by Samuel Boogie MD at 12/16/23 07:59 Sign Out Comment: Patient is EE'd, awaiting second certification in am. Has remained calm and cooperative throughout the day. Has normal medications ordered by previous provider. Last updated by Trista Orourke NP at 12/16/23 15:40 Sign Out Comment: Pt is under involuntary status pending placement for homicidal ideation Last updated by Gina Rolle PA at 12/16/23 23:07 Sign Out Comment: Patient here involuntarily. Questionable homicidal ideation. Pending placement Last updated by Gregorio Daily DO at 12/17/23 06:57 Sign Out Comment: patient here involuntary for homicidal ideation, no issues during shift Last updated by Christopher Finn MD at 12/17/23 14:44 Sign Out Comment: EE with second certification upheld. No active behavioral issues last shift. Medically cleared. Home meds ordered. Last updated by Prosper Aguero MD at 12/17/23 22:26 Sign Out Comment: 43yo M presenting with auditory hallucinations and HI. Medically cleared, EEd, 2nd cert upheld. Home meds in. No behavioral events overnight. Last updated by Aurora Ragland MD at 12/18/23 06:28 Sign Out Comment: Patient need for HI and auditory elucidation's, likely transfer to [place] tomorrow, no issues during shift Last updated by Christopher Finn MD at 12/18/23 20:53 Discharge Plan Disposition Patient Disposition: Psychiatric Hospital/Unit Specific Psychiatric Facility: [facility] Discharge Details Clinical Impression: Encounter for medical assessment Primary Care Provider: Prosper Quiñonez ED Provider: Aurora Ragland Home Meds and New Rx's Prescriptions: No Action gabapentin 600 mg tablet 600 mg PO TID Patient Comments: Take 1 tablet by mouth three times a day. lisinopril 20 mg tablet 20 mg PO DAILY Patient Comments: TAKE ONE TABLET BY MOUTH ONCE DAILY omeprazole 20 mg capsule,delayed release(DR/EC) 20 mg PO DAILY Patient Comments: TAKE ONE CAPSULE BY MOUTH ONCE DAILY methadone 5 mg/5 mL solution 120 mg PO DAILY methadone 10 mg/mL concentrate 60 mg PO DAILY Rx Instructions: take at 1400 testosterone 1 % (50 mg/5 gram) gel in packet 1 packet topical DAILY Patient Comments: Apply 1 packet every day by transdermal route.
[2023-12-19] MEDS: Omeprazole 20 MG CAPCR PO (07:24)
[2023-12-19] MEDS: Gabapentin 600 MG TAB PO ×2 (07:24→14:32)
[2023-12-19] MEDS: Lisinopril 20 MG TAB PO (07:24)
--- NOTE | 2023-12-19 07:55 | W.EDPROG ---
Date of service: 12/19/23 Time of Service: 07:55 Medical Decision Making patinet EE with 2nd cert in place. Accepted at [place]. Pending transport via police. [place] 5-6pm Quality:SDOH Health Related Social Needs: No Data to Display Sign Out Sign Out Data: Sign Out Comment: Requested by mental health to have a psychiatric evaluation. Patient calm and cooperative at this time. He denies any complaints of homicidal or suicidal ideations currently however he is also not very communicative. Pending mental health assessment this morning. Medically cleared at this time. Last updated by Gregorio Daily DO at 12/16/23 07:34 Sign Out Comment: EE, 2nd cert done[facility] Last updated by Aurora Ragland MD at 12/19/23 06:38 Sign Out Comment: Requested by mental health to have a psychiatric evaluation. Patient calm and cooperative at this time. He denies any complaints of homicidal or suicidal ideations currently however he is also not very communicative. Pending mental health assessment this morning. Medically cleared at this time. Last updated by Samuel Boogie MD at 12/16/23 07:59 Sign Out Comment: Patient is EE'd, awaiting second certification in am. Has remained calm and cooperative throughout the day. Has normal medications ordered by previous provider. Last updated by Trista Orourke NP at 12/16/23 15:40 Sign Out Comment: Pt is under involuntary status pending placement for homicidal ideation Last updated by Gina Rolle PA at 12/16/23 23:07 Sign Out Comment: Patient here involuntarily. Questionable homicidal ideation. Pending placement Last updated by Gregorio Daily DO at 12/17/23 06:57 Sign Out Comment: patient here involuntary for homicidal ideation, no issues during shift Last updated by Christopher Finn MD at 12/17/23 14:44 Sign Out Comment: EE with second certification upheld. No active behavioral issues last shift. Medically cleared. Home meds ordered. Last updated by Prosper Aguero MD at 12/17/23 22:26 Sign Out Comment: 43yo M presenting with auditory hallucinations and HI. Medically cleared, EEd, 2nd cert upheld. Home meds in. No behavioral events overnight. Last updated by Aurora Ragland MD at 12/18/23 06:28 Sign Out Comment: Patient need for HI and auditory elucidation's, likely transfer to [place] tomorrow, no issues during shift Last updated by Christopher Finn MD at 12/18/23 20:53 Discharge Plan Disposition Patient Disposition: Psychiatric Hospital/Unit Specific Psychiatric Facility: [facility] Discharge Details Clinical Impression: Encounter for medical assessment Primary Care Provider: Prosper Quiñonez ED Provider: Samuel Boogie Home Meds and New Rx's Prescriptions: No Action gabapentin 600 mg tablet 600 mg PO TID Patient Comments: Take 1 tablet by mouth three times a day. lisinopril 20 mg tablet 20 mg PO DAILY Patient Comments: TAKE ONE TABLET BY MOUTH ONCE DAILY omeprazole 20 mg capsule,delayed release(DR/EC) 20 mg PO DAILY Patient Comments: TAKE ONE CAPSULE BY MOUTH ONCE DAILY methadone 5 mg/5 mL solution 120 mg PO DAILY methadone 10 mg/mL concentrate 60 mg PO DAILY Rx Instructions: take at 1400 testosterone 1 % (50 mg/5 gram) gel in packet 1 packet topical DAILY Patient Comments: Apply 1 packet every day by transdermal route.
[2023-12-19] MEDS: Nicotine 4 MG LOZG SUC ×4 (08:16→15:54)
[2023-12-19] MEDS: Methadone Liquid 10 MG/ML 120 MG PO (08:50)
--- NOTE | 2023-12-19 13:42 | CMPROGNOTE_ITS ---
Date of service: 12/19/23 Care Management Progress Note Progress Note Text Progress Note Text: CM huddled with staff regarding Derrek's plan of care. Per RN, he has been accepted at [facility], and the nurse to nurse report has been completed. He is aware of the acceptance, and is looking forward to transferring. CM contacted [facility], who was informed of this bed offer. [facility] is coordinating transport. CM will continue to follow.
[2023-12-19] MEDS: Methadone Liquid 10 MG/ML 40 MG PO (14:32)
--- NOTE | 2023-12-19 16:02 | CMSP_ITS ---
Date of service: 12/19/23 Care Management Safety Plan Status Status: Involuntary Safety Plan Safety Plan: INVOLUNTARY FOR INPATIENT PSYCHIATRIC STABILIZATION.? Patient is appropriate in all interactions since arriving at [facility]; Pt has demonstrated appropriate coping and communication skills, has articulated his or her needs and concerns and is fully engaged during staff interactions. Safety plan has been established with patient, and care team, to adhere to patient goals, identify restrictions based on behavioral status, address nutrition, and determine allowed personal belongings, tools for hygiene and personal care. Determine level of activity including ambulation, level of supervision, visitors, and determine privileges based on behaviors and level of engagement by pt. SAFETY PLAN: 1. Will remain on suicide precautions, in paper clothes 2. Will remain in Zone B under direct supervision of one-on-one staff at all times provided by [employer]; SEUN, TELEPHONE ANSWERER blacking machine operator. 3. May have paper cups, plates, finger foods as well as a cardboard spoon with which to eat meals. 4. Follow [facility] Management of the Admitted Behavioral Health Patient policy. 5. Shower available in Zone B without restriction. 6. Personal belongings-soft items permitted at RN discretion. 7. Visitors-none at this time. 8. Activities: soft cart items approved per RN discretion. 9.? Bathroom available in Zone B without restriction. 10. Phone: limited to [facility] cordless phone at RN discretion. Due to INVOLUNTARY status, patient is being held at [facility] by the Department of Mental Health ([facility]) until 2nd certification by [facility] Psychiatrist can be performed (within 24 hours). Staff will provide de-escalation support (CPI) as needed. If patient wishes to leave [facility], staff will contact [facility] Crisis Screener ([phone]) and Assistant Professor Of Surgery ([phone]) as soon as possible. In the event of elopement, notify [place] [employer] ([phone]). Patient is currently involuntarily at [facility]. [facility] [employer] will continue seeking placement. Please contact the Assistant Professor Of Surgery for any needed changes to Safety Plan. Safety plan has been provided to interdepartmental care team. Patient will be transported by [employer] at time of discharge.
--- NOTE | 2023-12-19 16:02 | PDOC.CMSAFE ---
Date of service: 12/19/23 Care Management Safety Plan Status Status: Involuntary Safety Plan Safety Plan: INVOLUNTARY FOR INPATIENT PSYCHIATRIC STABILIZATION.? Patient is appropriate in all interactions since arriving at [facility]; Pt has demonstrated appropriate coping and communication skills, has articulated his or her needs and concerns and is fully engaged during staff interactions. Safety plan has been established with patient, and care team, to adhere to patient goals, identify restrictions based on behavioral status, address nutrition, and determine allowed personal belongings, tools for hygiene and personal care. Determine level of activity including ambulation, level of supervision, visitors, and determine privileges based on behaviors and level of engagement by pt. SAFETY PLAN: 1. Will remain on suicide precautions, in paper clothes 2. Will remain in Zone B under direct supervision of one-on-one staff at all times provided by [employer]; SEUN, PRODUCT TESTER [employer] non licensed nuclear plant operator. 3. May have paper cups, plates, finger foods as well as a cardboard spoon with which to eat meals. 4. Follow [facility] Management of the Admitted Behavioral Health Patient policy. 5. Shower available in Zone B without restriction. 6. Personal belongings-soft items permitted at RN discretion. 7. Visitors-none at this time. 8. Activities: soft cart items approved per RN discretion. 9.? Bathroom available in Zone B without restriction. 10. Phone: limited to [facility] cordless phone at RN discretion. Due to INVOLUNTARY status, patient is being held at [facility] by the Department of Mental Health ([facility]) until 2nd certification by [facility] Psychiatrist can be performed (within 24 hours). Staff will provide de-escalation support (CPI) as needed. If patient wishes to leave [facility], staff will contact [facility] Crisis Screener ([phone]) and Architecture Instructor ([phone]) as soon as possible. In the event of elopement, notify [place] [employer] ([phone]). Patient is currently involuntarily at [facility]. [facility] Frontline [employer]ringe Maker will continue seeking placement. Please contact the Architecture Instructor for any needed changes to Safety Plan. Safety plan has been provided to interdepartmental care team. Patient will be transported by [employer] at time of discharge.
--- NOTE | 2023-12-19 17:39 | W.EDPROG ---
Date of service: 12/19/23 Time of Service: 17:39 Medical Decision Making I received signout on this 43-year-old male currently on an EE. No active behavioral issues last shift. Patient has been accepted to [facility]. Will update documentation as clinically warranted. 10:45 PM Patient was transferred to [place]. Quality:SDOH Health Related Social Needs: No Data to Display Sign Out Sign Out Data: Sign Out Comment: Requested by mental health to have a psychiatric evaluation. Patient calm and cooperative at this time. He denies any complaints of homicidal or suicidal ideations currently however he is also not very communicative. Pending mental health assessment this morning. Medically cleared at this time. Last updated by Gregorio Daily DO at 12/16/23 07:34 Sign Out Comment: EE, 2nd cert done, medically cleared, [facility] [place] today Last updated by Aurora Ragland MD at 12/19/23 06:38 Sign Out Comment: EE + 2nd cert accepted at [place] transport coming between 5-6pm no issues today Last updated by Samuel Boogie MD at 12/19/23 16:48 Sign Out Comment: Requested by mental health to have a psychiatric evaluation. Patient calm and cooperative at this time. He denies any complaints of homicidal or suicidal ideations currently however he is also not very communicative. Pending mental health assessment this morning. Medically cleared at this time. Last updated by Samuel Boogie MD at 12/16/23 07:59 Sign Out Comment: Patient is EE'd, awaiting second certification in am. Has remained calm and cooperative throughout the day. Has normal medications ordered by previous provider. Last updated by Trista Orourke NP at 12/16/23 15:40 Sign Out Comment: Pt is under involuntary status pending placement for homicidal ideation Last updated by Gina Rolle PA at 12/16/23 23:07 Sign Out Comment: Patient here involuntarily. Questionable homicidal ideation. Pending placement Last updated by Gregorio Daily DO at 12/17/23 06:57 Sign Out Comment: patient here involuntary for homicidal ideation, no issues during shift Last updated by Christopher Finn MD at 12/17/23 14:44 Sign Out Comment: EE with second certification upheld. No active behavioral issues last shift. Medically cleared. Home meds ordered. Last updated by Prosper Aguero MD at 12/17/23 22:26 Sign Out Comment: 43yo M presenting with auditory hallucinations and HI. Medically cleared, EEd, 2nd cert upheld. Home meds in. No behavioral events overnight. Last updated by Aurora Ragland MD at 12/18/23 06:28 Sign Out Comment: Patient need for HI and auditory elucidation's, likely transfer to [place] tomorrow, no issues during shift Last updated by Christopher Finn MD at 12/18/23 20:53 Discharge Plan Disposition Patient Disposition: Psychiatric Hospital/Unit Specific Psychiatric Facility: [facility] Discharge Details Clinical Impression: Encounter for medical assessment Primary Care Provider: Prosper Quiñonez ED Provider: Prosper Aguero Home Meds and New Rx's Prescriptions: No Action gabapentin 600 mg tablet 600 mg PO TID Patient Comments: Take 1 tablet by mouth three times a day. lisinopril 20 mg tablet 20 mg PO DAILY Patient Comments: TAKE ONE TABLET BY MOUTH ONCE DAILY omeprazole 20 mg capsule,delayed release(DR/EC) 20 mg PO DAILY Patient Comments: TAKE ONE CAPSULE BY MOUTH ONCE DAILY methadone 5 mg/5 mL solution 120 mg PO DAILY methadone 10 mg/mL concentrate 60 mg PO DAILY Rx Instructions: take at 1400 testosterone 1 % (50 mg/5 gram) gel in packet 1 packet topical DAILY Patient Comments: Apply 1 packet every day by transdermal route. Discharge Data Discharge Date/Time-TO BE ENTERED AT DEPARTURE: 12/19/23 18:23
== END 2023-12-19 18:23 ==
PROVIDERS: Student in an Organized Health Care Education/Training Program; Emergency Provider Emergency Medicine; PCP Family Medicine
DX: R44.0 Auditory hallucinations (principal); R45.850 Homicidal ideations; D66 Hereditary factor VIII deficiency; B19.20 Unspecified viral hepatitis C without hepatic coma; I10 Essential (primary) hypertension; F17.210 Nicotine dependence, cigarettes, uncomplicated
CPT/HCPCS: 00123; 80053; 80307; 96127; 99285; 70450; 80320; 80329; 84443; 85025

== ENCOUNTER 2024-04-11 22:04 | Outpatient (REF) | payer MEDICAID, SELFPAY ==
[2024-04-11 15:19] LABS: HCT 47.4 % (40.0-50.0); MCH 31.9 pg (27.0-33.0); MCHC 33.8 % (32.0-36.0); MCV 94 fL (80-95); MPV 11.1 fL (8.0-11.0); Platelet Count 202 10^3/uL (130-400); RBC 5.02 10^6/uL (4.36-5.78); RDW-SD 41.8 fL; WBC 7.81 10^3/uL (4.4-10.8)
[2024-04-11 15:36] LABS: Calculated LDL 111 mg/dL (<100); Cholesterol 194 mg/dL (<200); HDL Cholesterol 54 mg/dL (40-60); Triglyceride 149 mg/dL (<150)
[2024-04-11 15:51] LABS: Hemoglobin A1C 5.2 % (<5.7)
[2024-04-11 23:02] LABS: PSA, Screening 0.5 ng/mL (<=2.5)
[2024-04-23 17:59] LABS: Testosterone, Free 53.3 ng/dL (4.46-17.1); Testosterone, Total 1640 ng/dL (240-950)
== END 2024-04-11 22:05 | disposition home or self-care (01) ==
LOC: NCHCN 22:04
PROVIDERS: PCP Student in an Organized Health Care Education/Training Program; Visit Provider Nurse Practitioner Family
DX: E23.0 Hypopituitarism (principal)
CPT/HCPCS: 80061; 84153; 84402; 84403; 85027; 83036

== ENCOUNTER 2025-04-21 15:58 | Outpatient (REF) | payer MEDICAID, SELFPAY ==
[2025-04-21 17:16] LABS: Abs Immature Grans 0.02 10^3/uL (0.0-0.06); HCT 42.2 % (40.0-50.0); HGB 14.3 g/dL (13.5-17.5); Immature Grans % 0.3 %; MCH 30.6 pg (27.0-33.0); MCHC 33.9 % (32.0-36.0); MCV 90 fL (80-95); MPV 12.2 fL (8.0-11.0); Platelet Count 197 10^3/uL (130-400); RBC 4.68 10^6/uL (4.36-5.78); RDW 11.9 % (11.8-14.1); RDW-SD 38.9 fL; WBC 6.68 10^3/uL (4.4-10.8)
[2025-04-21 18:05] LABS: ALT 31 U/L (16-63); AST 19 U/L (15-37); Albumin 4.4 g/dL (3.4-5.0); Alkaline Phosphatase 79 U/L (46-116); Anion Gap 7.4 mmol/L (3-11); BUN 15 mg/dL (7-18); Bilirubin, Total 0.3 mg/dL (0.2-1.0); CO2 30.6 mmol/L (21.0-32.0); Calcium 9.4 mg/dL (8.5-10.1); Chloride 103 mmol/L (98-107); Estimated GFR 95.18 (mL/min/1.73m2); Glucose 76 mg/dL (74-106); Potassium 5.0 mmol/L (3.5-5.1); Sodium 141 mmol/L (136-145); TSH (W/Ref FT4) 1.23 uIU/mL (0.36-3.74); Total Protein 7.5 g/dL (6.4-8.2)
[2025-04-21 23:11] LABS: HIV-1/2 Ag & Ab Screen Negative (Negative)
[2025-04-27 19:31] LABS: Testosterone, Free 18.2 pg/mL (35.0-155.0)
== END 2025-04-21 15:59 | disposition home or self-care (01) ==
LOC: NCHCN 15:58
PROVIDERS: PCP Student in an Organized Health Care Education/Training Program; Visit Provider Nurse Practitioner Family
DX: E23.0 Hypopituitarism (principal); R53.83 Other fatigue; Z86.19 Personal history of other infectious and parasitic diseases; Z11.4 Encounter for screening for human immunodeficiency virus [HIV]
CPT/HCPCS: 80053; 84402; 84403; 87389; 87522; 84443; 85025